=== PATIENT | female | born 1980 ===

== ENCOUNTER 2017-11-03 11:19 | Outpatient (CLI) | payer OTHER ==
[~2017-11-03] VITALS: Ht 162.6 cm; Wt 59.9 kg
== END 2017-11-03 11:40 | disposition home or self-care (01) ==
LOC: OFIC 805 11:19
DX: J35.2 Hypertrophy of adenoids (principal); J30.89 Other allergic rhinitis; R09.81 Nasal congestion; K21.9 Gastro-esophageal reflux disease without esophagitis